=== PATIENT | female | born 2000 | race Hispanic/Latino ===

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

== ENCOUNTER 2022-02-24 02:39 | Emergency (ER) | payer OTHER ==
[~2022-02-24] VITALS: Ht 172.7 cm; Wt 120.2 kg
[2022-02-24 03:38] LABS: PLATELET COUNT 355 K/uL (152-353)
[2022-02-24 03:45] LABS: POTASSIUM 3.5 mmol/L (3.6-5.2)
[2022-02-24 04:35] VITALS: BP 129/77; TEMP 98.6
== END 2022-02-24 04:35 | disposition home or self-care (01) ==
LOC: ED 02:39
PROVIDERS: Emergency Medicine Emergency Medical Services
DX: K80.50 Calculus of bile duct without cholangitis or cholecystitis without obstruction (principal)
CPT/HCPCS: 36415; 80053; 81002; 82150; 83690; 85027; 99283

== ENCOUNTER 2022-02-25 11:18 | Outpatient (CLI) | payer OTHER | END 2022-02-25 19:12 | disposition home or self-care (01) | LOC: US 11:18 | PROVIDERS: ATTEND Nurse Practitioner | DX: R10.11 Right upper quadrant pain (principal) ==

== ENCOUNTER 2022-03-05 11:50 | Outpatient (CLI) | payer OTHER | END 2022-03-05 18:59 | disposition home or self-care (01) | LOC: NM 11:50 | PROVIDERS: ATTEND Nurse Practitioner | DX: R10.11 Right upper quadrant pain (principal) | CPT/HCPCS: A9537 ==

== ENCOUNTER 2022-03-13 06:07 | Emergency (ER) | payer OTHER ==
[~2022-03-13] VITALS: Ht 172.7 cm; Wt 120.2 kg
[2022-03-13 07:05] VITALS: BP 122/73; TEMP 97.9
== END 2022-03-13 07:05 | disposition home or self-care (01) ==
LOC: ED 06:07
DX: K80.50 Calculus of bile duct without cholangitis or cholecystitis without obstruction (principal); E66.8 Other obesity
CPT/HCPCS: 99283